=== PATIENT | female | born 1975 | race Caucasian/White ===

== ENCOUNTER 2017-11-27 15:35 | Emergency (ER) | payer MEDICAID ==
--- NOTE | 2017-11-27 15:53 | EDM.PDOC ---
ED HPI GENERAL MEDICAL PROBLEM - General Chief Complaint: Respiratory Problem Stated Complaint: asthma attack Time Seen by Provider: 11/27/17 15:48 Source of Information: Reports: Patient, RN History Limitations: Reports: No Limitations - History of Present Illness INITIAL COMMENTS - FREE TEXT/NARRATIVE: 42 yr female presents with cough and wheeze for 2 weeks. states hx of asthma diagnosed about 2 year ago. States hx of PTSD and asthma induced with stress. States cough and vomiting every am. States some watery eyes. Takes Advair, albuterol and singulair, metoprolol and zoloft. Onset: Today - Related Data Allergies Allergy/AdvReac Type Severity Reaction Status Date / Time No Known Allergies Allergy Verified 11/27/17 15:50 Home Meds: Home Meds Albuterol [Proventil Neb Soln] 1.25 mg NEB Q4HRRT 11/27/17 [History] Albuterol/Ipratropium [DuoNeb 3.0-0.5 MG/3 ML] 3 ml .XX QID 30 Days #120 neb [Rx] Fluticasone/Salmeterol [Advair 250-50 Diskus] 1 each IH ASDIRECTED 11/27/17 [ History] Metoprolol Tartrate [Lopressor] 100 mg PO DAILY 11/27/17 [History] Montelukast [Singulair] 5 mg PO DAILY 11/27/17 [History] Prednisone [IJD: Prednisone] 10 mg PO DAILY 7 Days #30 tab 11/27/17 [Rx] Sertraline [Zoloft] 25 mg PO DAILY 11/27/17 [History] hydrOXYzine HCl [Atarax] 50 mg PO BID 11/27/17 [History] ED ROS GENERAL - Review of Systems Review Of Systems: See Below HEENT: Reports: Other (itchy eyes). Denies: Vision Change Respiratory: Reports: Wheezing, Cough Cardiovascular: Reports: No Symptoms GI/Abdominal: Reports: No Symptoms Musculoskeletal: Reports: Other (body aches) ED EXAM, GENERAL - Physical Exam Exam: See Below Exam Limited By: No Limitations General Appearance: Alert, No Apparent Distress Ears: Normal External Exam, Normal Canal Ear Exam: Bilateral Ear: TM Red Nose: Normal Inspection Throat/Mouth: Normal Inspection Head: Atraumatic, Normocephalic Neck: Supple, Non-Tender Respiratory/Chest: Decreased Breath Sounds, Wheezing Cardiovascular: Regular Rate, Rhythm Neurological: Alert, Oriented, Normal Cognition, Normal Gait Psychiatric: Normal Affect Skin Exam: Warm, Dry, Normal Color Course - Vital Signs Last Recorded V/S: Last Vital Signs Temp 98.2 F 11/27/17 15:45 Pulse 73 11/27/17 15:45 Resp 20 11/27/17 15:45 BP 149/91 H 11/27/17 15:45 Pulse Ox 97 11/27/17 15:45 - Orders/Labs/Meds Orders: Active Orders 24 hr Category Date Time Status Albuterol/Ipratropium [DuoNeb 3.0-0.5 MG/3 ML] Med 11/27/17 16:03 Active 3 ml NEB Q2H PRN Medication Orders Albuterol/Ipratropium (Duoneb 3.0-0.5 Mg/3 Ml) 3 ml NEB Q2H PRN PRN Reason: wheezing Labs: Laboratory Tests 11/27/17 11/27/17 Range/Units 16:07 16:07 WBC 9.0 (4.0-11.0) K/uL RBC 4.69 (3.80-5.80) M/uL Hgb 13.5 (11.5-16.5) g/dL Hct 39.3 (37.0-47.0) % MCV 84 (76-96) fL MCH 28.8 (27.0-32.0) pg MCHC 34.4 (31.0-35.0) g/dL RDW 12.7 (11.0-16.0) % Plt Count 273 (150-500) K/uL MPV 10.0 (6.0-10.0) fL Neut % (Auto) 64.3 (45.0-70.0) % Lymph % (Auto) 25.9 (20.0-40.0) % [place] % (Auto) 5.1 (3.0-10.0) % Eos % (Auto) 4.5 (1.0-5.0) % Baso % (Auto) 0.2 (0.0-0.5) % Neut # (Auto) 5.75 (2.00-7.50) K/uL Lymph # (Auto) 2.32 (1.50-4.00) K/uL [place] # (Auto) 0.46 (0.20-0.80) K/uL Eos # (Auto) 0.40 (0.04-0.40) K/uL Baso # (Auto) 0.02 (0.02-0.10) K/uL Sodium 139 (136-145) mmol/L Potassium 3.8 (3.5-5.1) mmol/L Chloride 102 (98-107) mmol/L Carbon Dioxide 26.7 (21.0-32.0) mmol/L Anion Gap 14.1 (5.0-15.0) mmol/L BUN 12 (8-26) mg/dL Creatinine 0.85 (0.55-1.02) mg/dL Est Cr Clr Drug Dosing 63.19 mL/min Estimated GFR (MDRD) > 60 (>60) MLS/MIN BUN/Creatinine Ratio 14.1 (6-25) Glucose 101 H (74-100) mg/dL Calcium 9.0 (8.5-10.1) mg/dL Meds: Medications Generic Name Dose Route Start Last Admin Trade Name Freq PRN Reason Stop Dose Admin Albuterol/Ipratropium 3 ml 11/27/17 16:03 Duoneb 3.0-0.5 Mg/3 Ml NEB Q2H PRN wheezing Discontinued Medications Generic Name Dose Route Start Last Admin Trade Name Freq PRN Reason Stop Dose Admin Methylprednisolone Sodium Succinate 125 mg 11/27/17 16:03 11/27/17 16:05 Solu-Medrol IM 11/27/17 16:04 125 mg ONETIME ONE Administration - Re-Assessments/Exams Free Text/Narrative Re-Assessment/Exam: 11/27/17 16:48 Breathing has improved with use of duoneb and solumedrol. Pt sitting on side of exam table and states comfortable. States her nebulizer machine is broke and she was using her child's nebulizer. Will discharge to self care with use of duoneb qid X 3 weeks. Prednisone taper for 6 days. Return to PCP for follow-up. Return to ER if symptoms worsen. 11/27/17 16:51 Negative strep test, normal CBC and BMP with slight elevation in blood sugar. Follow-up with PCP. continue with medications for asthma control. Departure - Departure Time of Disposition: 16:48 Disposition: Home, Self-Care 01 Condition: Good Clinical Impression: Exacerbation of asthma - Discharge Information Prescriptions: Albuterol/Ipratropium [DuoNeb 3.0-0.5 MG/3 ML] 3 ml .XX QID 30 Days #120 neb Prednisone [IJD: Prednisone] 10 mg PO DAILY 7 Days #30 tab Instructions: How to Jeff With Asthma, Teen, Albuterol inhalation aerosol, Metered Dose Inhaler (No Spacer Used), Asthma, Adult, [id number], Albuterol; Ipratropium solution for inhalation, Prednisone tablets Referrals: PCP,None [Primary Care Provider] - Forms: ED Department Discharge Additional Instructions: Follow up in the ER or the clinic if you continue to have any more breathing issues or they get worse. The clinic number is [phone] and the hospital is [phone]. - My Orders Last 24 Hours: My Active Orders 11/27/17 16:03 Albuterol/Ipratropium [DuoNeb 3.0-0.5 MG/3 ML] 3 ml NEB Q2H PRN - Assessment/Plan Last 24 Hours: My Active Orders 11/27/17 16:03 Albuterol/Ipratropium [DuoNeb 3.0-0.5 MG/3 ML] 3 ml NEB Q2H PRN
[2017-11-27] MEDS ORDERED: methylPREDNISolone Sodium Succinate 125 MG/2 ML SDV IM ONE (16:03)
[2017-11-27] MEDS ORDERED: Albuterol/Ipratropium 3.0-0.5 MG/3 ML Neb Soln NEB PRN (16:03)
[2017-11-27] MEDS ORDERED: Albuterol/Ipratropium 3.0-0.5 MG/3 ML Neb Soln ONE (16:05)
== END 2017-11-27 16:46 | disposition home or self-care (01) ==
LOC: LB.ED 15:35
DX: J45.901 Unspecified asthma with (acute) exacerbation (principal); F43.10 Post-traumatic stress disorder, unspecified; Z79.899 Other long term (current) drug therapy
CPT/HCPCS: 36415; 80048; 85025; 87804; 96372; 99285; J2930; J7620

== ENCOUNTER 2018-01-12 15:07 | Emergency (ER) | payer MEDICAID ==
[2018-01-12] MEDS ORDERED: Nystatin Susp 100,000 Unit/ML 5 ML UD Cup ONE (15:20)
--- NOTE | 2018-01-12 15:35 | EDM.PDOC ---
ED HPI GENERAL MEDICAL PROBLEM - General Stated Complaint: possible thrush Time Seen by Provider: 01/12/18 15:17 Source of Information: Reports: Patient History Limitations: Reports: No Limitations - History of Present Illness INITIAL COMMENTS - FREE TEXT/NARRATIVE: Patient is a 42 year old woman who uses Advair Diskus and Pulmicort for her asthma. She does rinse after using the inhaler and nebs but now she has thrush and her tongue is hurting. No other complaints. Onset: Today Onset Date: 01/12/18 Onset Time: 08:00 Duration: Day(s): (1) Location: Reports: Head (Mouth) Quality: Reports: Burning Severity: Mild Improves with: Reports: None Worsens with: Reports: None Context: Reports: Other (Uses steroid nebs and inhalers.) Associated Symptoms: Reports: No Other Symptoms - Related Data Allergies Allergy/AdvReac Type Severity Reaction Status Date / Time No Known Allergies Allergy Verified 11/27/17 15:50 Home Meds: Home Meds Albuterol [Proventil Neb Soln] 1.25 mg NEB Q4HRRT 11/27/17 [History] Albuterol/Ipratropium [DuoNeb 3.0-0.5 MG/3 ML] 3 ml .XX QID 30 Days #120 neb [Rx] Fluticasone/Salmeterol [Advair 250-50 Diskus] 1 each IH ASDIRECTED 11/27/17 [ History] Metoprolol Tartrate [Lopressor] 100 mg PO DAILY 11/27/17 [History] Montelukast [Singulair] 5 mg PO DAILY 11/27/17 [History] Prednisone [IJD: Prednisone] 10 mg PO DAILY 7 Days #30 tab 11/27/17 [Rx] Sertraline [Zoloft] 25 mg PO DAILY 11/27/17 [History] hydrOXYzine HCl [Atarax] 50 mg PO BID 11/27/17 [History] ED ROS ENT - Review of Systems Review Of Systems: ROS reveals no pertinent complaints other than HPI. ED EXAM, ENT - Physical Exam Exam: See Below Exam Limited By: No Limitations General Appearance: Alert, WD/WN, No Apparent Distress Eye Exam: Bilateral Eye: EOMI, Normal Fundi, Normal Inspection, PERRL Ears: Normal External Exam, Normal Canal, Hearing Grossly Normal, Normal TMs Nose: Normal Inspection Mouth/Throat: Other (Mouth and tongue have a white covering consistent with thrush) Head: Atraumatic, Normocephalic Neck: Normal Inspection, Supple, Non-Tender, Full Range of Motion Respiratory/Chest: No Respiratory Distress, Lungs Clear, Normal Breath Sounds, No Accessory Muscle Use, Chest Non-Tender Cardiovascular: Normal Peripheral Pulses, Regular Rate, Rhythm, No Edema, No Gallop, No JVD, No Murmur, No Rub GI/Abdominal: Normal Bowel Sounds, Soft, Non-Tender, No Organomegaly, No Distention, No Abnormal Bruit, No Mass Extremities: Normal Inspection, Normal Range of Motion, Non-Tender, No Pedal Edema, Normal Capillary Refill Neurological: Alert, Oriented, CN II-XII Intact, Normal Cognition, Normal Gait, Normal Reflexes, No Motor/Sensory Deficits Psychiatric: Normal Affect, Normal Mood Skin: Warm, Dry, Intact, Normal Color, No Rash Lymphatic: No Adenopathy Course - Vital Signs Text/Narrative:: Uneventful ED course. She did well and was sent home with 8, 5 ml unit doses of Nystatin suspension 100,000 units per ml, to be swished and spit or swallowed qid for 2 days and she also was given a prescription for Nystatin suspension 100 ,000 units per ml, 10 ml po swish and spit qid for 10 days, 400 ml. She will follow up with her PCP as needed next week as needed. Departure - Departure Time of Disposition: 15:38 Disposition: Home, Self-Care 01 Condition: Good Clinical Impression: Thrush, oral - Discharge Information
== END 2018-01-12 15:39 | disposition home or self-care (01) ==
LOC: LB.ED 15:07
DX: B37.0 Candidal stomatitis (principal); J45.909 Unspecified asthma, uncomplicated; Z79.899 Other long term (current) drug therapy
CPT/HCPCS: 99282; A9270